=== PATIENT | male | born 1985 | race African-American/Black ===

== ENCOUNTER 2021-09-02 21:30 | Emergency (ER) | payer OTHER ==
--- OUTSIDE RECORDS SUMMARY | 2021-09-02 21:37 | EXTERNAL MEDICAL SUMMARY RPT | Continuity of Care Document ---
:1985 Author Organization [facility] Address [address] [place] [address] Phone Allergies No information. Encounters No information. Functional Status No information. Immunizations No information. Medications date description facility (no date) [facility] Problems No information. Procedures No information. Results/Labs No information. Social History No information. Vital Signs date measurement value units [id number] BMI BMI 29.65 kg/m2 [id number]+0000 heart_rate heart_rate 92 /min [id number]+0000 height_metric height_metric 172.72 cm [id number]+0000 height_standard height_standard 68 in [id number]+0000 temperature_metric temperature_metric 36.06 C [id number]+0000 temperature_standard temperature_standard 9 6.9 F [id number]+0000 weight_metric weight_metric 88.45 kg [id number]+0000 weight_standard weight_standard 195 lb
[2021-09-02 22:23] VITALS: BP 129/68
[2021-09-02] MEDS ORDERED: oxyCODONE/ACET 5/325 Prepack 4 PO STA (23:45)
[2021-09-02] MEDS ORDERED: oxyCODONE 5 MG TABLET PO STA (23:45)
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
== END 2021-09-03 00:08 | disposition home or self-care (01) ==
LOC: ED 21:30
DX: T23.022A Burn of unspecified degree of single left finger (nail) except thumb, initial encounter (principal); X16.XXXA Contact with hot heating appliances, radiators and pipes, initial encounter
CPT/HCPCS: 99282; A9270